=== PATIENT | female | born 1990 | race Caucasian/White ===

== ENCOUNTER 2018-09-11 13:42 | Outpatient (CLI) | payer OTHER ==
[~2018-09-11] VITALS: Ht 170.2 cm; Wt 102.7 kg
[~2018-09-11 13:42] MED LIST: ASPI1TAB15 PO; BUTALB-ACETAMIN-CAFF; DOCU10CA PO; FERR325T3 PO; IBUP1TAB7 PO; IBUP80TA PO; LABE20TAB PO; MAPA500T2 PO; ONDA8TAB7 PO; VITAPRTA PO
[2018-09-11 14:16] VITALS: BP 115/78
[2018-09-11] MEDS ORDERED: VITA25TA3 PO (14:25)
== END 2018-09-11 16:05 | disposition home or self-care (01) ==
LOC: M LDO 13:42
PROVIDERS: ATTEND Obstetrics & Gynecology
DX: O26.893 Other specified pregnancy related conditions, third trimester (principal); R10.13 Epigastric pain; O47.1 False labor at or after 37 completed weeks of gestation; Z3A.39 39 weeks gestation of pregnancy
CPT/HCPCS: 59025; G0378; G0463

== ENCOUNTER 2018-09-20 10:17 | Outpatient (CLI) | payer OTHER ==
[~2018-09-20] VITALS: Ht 170.2 cm; Wt 102.5 kg
[~2018-09-20 10:17] MED LIST changes: +VITA25TA3 PO
[2018-09-20 10:43] VITALS: BP 110/74
--- NOTE | 2018-09-20 11:55 | IPNPDOC ---
Text Note Date of Service The patient was seen on 09/20/18. NOTE 28 yo at 40+3 weeks gestation presents to L&D with intermittent contractions and pressure. She reports she started having pain around 0400, however she doesn't really remember what contractions felt like as she was induced for her first delivery and was very comfortable with an epidural. Today she denies any vaginal bleeding, or leakage of fluid. She endorses excellent movement. Chaperoned by L&D RN Vitals - VSS, afebrile, normotensive, non tachycardic General - AAOX3, sitting up in bed, NAD, pleasant and conversant Abdomen - Gravid uterus, no fundal tenderness Cervix - 50/-4, very posterior and high FHR tracing - Cat I tracing with moderate variability, +accels, no decels, no clear ctx on monitor. Couple breaks in tracing when patient was sitting up. Patient not in labor, unchanged cervix from check last week. Reassuring status. Scheduled for IOL on [id number] at 41 weeks. Return to care sooner for any urgent concerns. All questions answered. DO REJI Maya,Rafa, I+O VS, Rafa, I+O Vital Signs Date Time Temp Pulse Resp B/P (MAP) Pulse Ox O2 Delivery O2 Flow Rate FiO2 09/20/18 10:43 98.1 105 18 110/74 (86) 98 DAYDAY CHINCHILLA DO Sep 20, 2018 11:55
== END 2018-09-20 11:48 | disposition home or self-care (01) ==
LOC: M LDO 10:17
PROVIDERS: ATTEND Obstetrics & Gynecology
DX: O26.893 Other specified pregnancy related conditions, third trimester (principal); R10.30 Lower abdominal pain, unspecified; O47.1 False labor at or after 37 completed weeks of gestation; Z3A.40 40 weeks gestation of pregnancy
CPT/HCPCS: G0378; G0463

== ENCOUNTER 2018-09-23 04:43 | Inpatient (IN) | payer OTHER ==
[2018-09-23] VITALS (49 sets, daily range): BP systolic 103–180; BP diastolic 58–112
[~2018-09-23] VITALS: Ht 170.2 cm; Wt 103.6 kg
[2018-09-23] MEDS ORDERED: ACET-683 PO (05:32)
[2018-09-23] MEDS ORDERED: BENA25CA4 PO (05:33)
[2018-09-23] MEDS ORDERED: FIORCAP3 PO (05:33)
[2018-09-23] MEDS: LR 1,000 ML IV SCH ×3 (05:38→21:38)
[2018-09-23] MEDS ORDERED: LACTATED RINGER'S 1000 ML IV STA ×2 (05:38→07:28)
[2018-09-23] MEDS ORDERED: MORPHINE 10 MG/ML 1ML VIAL (J2270) IV ONE (06:00)
[2018-09-23] MEDS ORDERED: MORPHINE 10 MG/ML 1ML VIAL (J2270) As Ordered ONE (06:02)
[2018-09-23 06:34] LABS: HEMATOCRIT 34.5 % (36.0-47.0); HEMOGLOBIN 10.9 g/dl (12.0-15.5); MEAN CORPUSCULAR HEMOGLOBIN 25.1 pg (27.0-33.0); MEAN CORPUSCULAR HGB CONC 31.6 g/dl (32.0-36.5); MEAN CORPUSCULAR VOLUME 79.5 fl (80.0-96.0); PLATELET COUNT, AUTOMATED 298 10^3/uL (150-450); RED BLOOD COUNT 4.34 10^6/uL (4.00-5.40); WHITE BLOOD COUNT 11.6 10^3/uL (4.0-10.0)
[2018-09-23 06:36] LABS: APPEARANCE, URINE CLOUDY (CLEAR); BACTERIA, URINE AUTO NEGATIVE (NEGATIVE); BILIRUBIN, URINE AUTO NEGATIVE (NEGATIVE); BLOOD, URINE BLOOD NEGATIVE (NEGATIVE); COLOR, URINE YELLOW (YELLOW); GLUCOSE, URINE (UA) AUTO NEGATIVE (NEGATIVE); KETONE, URINE AUTO NEGATIVE (NEGATIVE); LEUKOCYTE ESTERASE, URINE AUTO 3+ (NEGATIVE); NITRITE, URINE AUTO NEGATIVE (NEGATIVE); PROTEIN, URINE AUTO 1+ mg/dL (NEGATIVE); RBC, URINE AUTO 9 /HPF (0-3); SPECIFIC GRAVITY URINE AUTO 1.013 (1.002-1.035); SQUAMOUS EPITHELIAL CELL UR AU 4 /HPF (0-6); UROBILINOGEN, URINE AUTO 0.2 mg/dL (0.0-2.0); WBC, URINE AUTO TNTC /HPF (0-3)
--- NOTE | 2018-09-23 07:48 | HPEPDOC ---
Obstetrical History & Physical General Date of Admission Sep 23, 2018 at 04:43 History of Present Illness 28 yo at 40+6 weeks gestation by 11+2 week US on [id number] presented to L&D with excruciating left sided lower back pain that woke her from sleep. She reports the pain has been present for the last few days but acutely worsened last night. She denies any vaginal bleeding or leakage of fluid. She endorses movement. is uncomplicated. She is scheduled for an IOL tomorrow for late term gestation. Chief Complaint: Other (Back pain) Information Provided By: Patient Age: 28 : 3 Term: 0 Pre-term: 1 Abortions: 0 Livin Care Care: Good Care Dating Final EDC: Sep 17, 2018 Final EDC for Daily Update: Sep 17, 2018 Final EDC by: 1st trimester (US) (ANTHONY set by 11+2 week US on [id number]) 1st Trimester Date: Feb 27, 2018 Antepartum Course Diagnos(e)s History of pre e requiring IOL at 36 weeks in first ---> no pre e this Migraines --> stable on fioricet Slight pyelectasis on US and possible club foot seen on PNC US Past Medical History Past Obstetrical History : Past Obstetrical History: Multigravida Type of Delivery: Spontaneous Vaginal Del. (36 week in 2014 after undergoing IOL for Pre E. Pelvis proven to 5lbs 6oz.) Complications: No [employer] History: No pertinent history Past Medical History Medical History Migraines depression Surgical History: Appendectomy (Open appendectomy), Other (Excision of swollen ingunial lymph node) Family History Significant Family History: No pertinent family hx Social History Marital Status: Family situation: Spouse/partner home Psychosocial History: Other (History of depression) * Smoker: non-smoker Alcohol: Denies Drugs: denies Imunizations Tdap status: current Influenza Status: current Allergies Coded Allergies: No Known Allergies (Unverified , 07/12/18) Medications Scheduled Multivit/Min/Pren/Fol Ac/Iron ( Vitamin Plus Low Iron) 1 Tab Tab, 1 TAB PO DAILY for NUTRITIONAL SUPPORT Riboflavin (Vitamin B2) (Vitamin B-2) 25 Mg Tablet, 1 TAB PO DAILY Scheduled PRN Acetaminophen (Acetaminophen) 500 Mg Tablet, 1,000 MG PO Q6H PRN for Pain Butalbital/Aspirin/Caffeine (Fiorinal 50-325-40 mg Capsule) 1 Each Capsule, 1 CAP PO DAILYPRN PRN for pain Diphenhydramine HCl (Benadryl) 25 Mg Capsule, 25 MG PO Q6-8HP PRN for Pain Physical Examination Physical Examination GENERAL: Alert and oriented times three. ABDOMEN: Gravid and non-tender to touch. BACK: Tenderness to palpation at lower back on left side. Tight musculature c/w spasm FETUS: Is vertex (VTX) by sterile vaginal examination (SVE) EXTREMITIES: No edema. Vital Signs/I&O Vital Signs Date Time Temp Pulse Resp B/P (MAP) Pulse Ox O2 Delivery O2 Flow Rate FiO2 09/23/18 06:26 116 18 103/64 09/23/18 06:12 99.0 99 Laboratory Data 24H LABS Laboratory Tests 2 09/23/18 04:49: Serology Scanned Report Hepatitis B Testing 09/23/18 05:56: Nucleated Red Blood Cells % (auto) 0.0, Urine Appearance CLOUDYH, Urine Color YELLOW, Urine pH 6.0, Urine Specific [place] 1.013, Urine Protein 1+H, Urine Glucose (UA) NEGATIVE, Urine Ketones NEGATIVE, Urine Urobilinogen 0.2, Urine Bilirubin NEGATIVE, Urine Leukocyte Esterase 3+H, Urine Blood NEGATIVE, Urine Nitrite NEGATIVE, Urine WBC (Auto) TNTCH, Urine RBC (Auto) 9H, Urine Hyaline Casts (Auto) 0, Urine Bacteria (Auto) NEGATIVE, Urine Squamous Epithelial Cells 4, Urine Sperm (Auto) CBC/BMP Laboratory Tests 09/23/18 05:56 Red Blood Count 4.34, Mean Corpuscular Volume 79.5 L, Mean Corpuscular Hemoglobin 25.1 L, Mean Corpuscular Hemoglobin Concent 31.6 L, Red Cell Distribution Width 16.2 H Urine Culture: No Growth Pertinent Laboratoy Data Blood Type: AB+ RBC Antibody Screen: Negative HIV: Negative Hepatitis B: Negative Hepatitis C: Unknown Rapid Plasma Reagin: Nonreactive Rubella: Immune Varicella: Immune Chlamydia/Gonorrhea: Negative Group B Streptococcus: Negative Quad Screen Test: Unknown Cystic Fibrosis: Unknown Glucose Tolerance Test: 112 Anatomy Ultrasound Placenta Location: Posterior Normal Anatomy: Yes (Yes other than mild renal pyelectasis and possible club foot) Placenta Previa: No Steroid Therapy Steroid Therapy: No Vaginal Examination Dilation: 3 cm Effacement: 70% Station: -2 Cervical Consistency: Medium Cervical Position: Middle Presentation: Cephalic presentation Position: Vertex (occiput) Assessment Heart Rate (FHR): 130 Variability: Moderate Accelerations: Positive Decelerations: None Tocometer Contractions: No Duration: other Assessment/Plan Assessment 28 yo at 40+6 weeks gestation presented with left sided back pain c/w with muscle spasm. Scheduled for IOL tomorrow, however cervix favorable so will start IOL today. Plan Admit to L&D for IOL. Apply IV fluids. Clear liquid diet. GBS negative. Cervix favorable, will start IOL with pitocin. Patient may have epidural when desired. Will treat muscle spasm pain as needed. Anticipate . All patient questions answered. DO RENÉE Maya CHRISTOPHER J. DO Sep 23, 2018 07:48
[2018-09-23] MEDS ORDERED: LR 1,000 ML IV SCH (08:00)
[2018-09-23] MEDS ORDERED: OXYTOCIN DRIP 30 UNITS in APPROPRIATE DILUENT 1 EA IV SCH ×2 (08:00→18:00)
[2018-09-23] MEDS ORDERED: ACETAMINOPHEN 325 MG TAB PO ONE (08:15)
[2018-09-23] MEDS: FIORICET TAB PO PRN ×2 (10:47→15:53)
[2018-09-23] MEDS ORDERED: FENTANYL 2MCG/ML ROPIVACAINE 0.2% IN 0.9% NACL 100ML IVBAG As Ordered ONE (14:15)
[2018-09-23] MEDS ORDERED: EPIDURAL COMMENT XX SCH (15:45)
[2018-09-23] MEDS ORDERED: REFRIGERATOR IV KEYS XX PRN (15:45)
[2018-09-23] MEDS ORDERED: ePHEDrine SULFATE 25 MG/5 ML(5MG/ML) SYRINGE IV PRN (15:45)
[2018-09-23] MEDS ORDERED: NALOXONE INJ 0.4 MG/1 ML VIAL (J2310) IV PRN (15:45)
[2018-09-23] MEDS ORDERED: LACTATED RINGER'S 1000 ML IV PRN (15:45)
[2018-09-23] MEDS ORDERED: diphenhydrAMINE INJ 50MG/ML VIAL (J1200) IV PRN (15:45)
[2018-09-23] MEDS ORDERED: FENTANYL/ROPIVACAINE/NACL BAG 100 ML EPIDURAL SCH (15:45)
[2018-09-23] MEDS ORDERED: ONDANSETRON 4MG/2ML VIAL (J2405) IV PRN (15:45)
[2018-09-23] MEDS ORDERED: EPIDURAL/PCA KEYS XX PRN (15:45)
--- NOTE | 2018-09-23 15:58 | NUR ---
assessment post epidural. Small leak clear fluid noted category 1 strip exam cervix posterior thick -3 station 2-3 cm soft arom of bag clear fluid Pitocin 8 munits noted migraine better on Fioricet. Safe to proceed. Patient has multiple vulvar varicose veins
[2018-09-23] MEDS ORDERED: DOCUSATE SODIUM 100 MG CAP PO PRN (17:45)
[2018-09-23] MEDS ORDERED: DIBUCAINE 1% OINTMENT 30GM TOP PRN (17:45)
[2018-09-23] MEDS ORDERED: ANUSOL HC CREAM 30GM TOP PRN (17:45)
[2018-09-23] MEDS ORDERED: IBUPROFEN 600 MG TAB PO PRN (17:45)
[2018-09-23] MEDS ORDERED: MEASLES,MUMPS,RUBELLA VACCINE INJ (MMR-II) (90707) SC SCH (17:45)
[2018-09-23] MEDS ORDERED: RHOGAM 300 MCG (1500 IU) INJ (J2790) IM SCH (17:45)
[2018-09-23] MEDS ORDERED: ACETAMINOPHEN TAB 650MG DOSE (2X325MG) PO PRN (17:45)
[2018-09-23] MEDS ORDERED: MOM 30ML SUSPENSION UDC PO PRN (17:45)
[2018-09-23] MEDS ORDERED: METHYLERGONOVINE MALEATE 0.2 MG TAB PO PRN (17:45)
[2018-09-23 17:47] LABS: CORD GAS ABE V -2.2; CORD GAS HCO3 V 22.1 MEQ/L; CORD GAS PCO2 V 37.1 mmHg; CORD GAS PH V 7.393 UNITS; CORD GAS PO2 V 31.4 mmHg; CORD GAS TCO2 V 23.2 MEQ/L
[2018-09-23 17:48] LABS: CORD GAS ABE A -0.7; CORD GAS HCO3 A 25.8 MEQ/L; CORD GAS O2 SAT A 35.4 %; CORD GAS PH A 7.339 UNITS; CORD GAS PO2 A 18.1 mmHg; CORD GAS SBC A 22.3 MEQ/L; CORD GAS TCO2 A 27.3 MEQ/L
[2018-09-23] MEDS ORDERED: OXYTOCIN INJ 10 UNITS/ML VIAL (J2590) IV ONE (18:00)
[2018-09-23] MEDS ORDERED: OXYTOCIN 30 UNITS IN 0.9% NaCl 500ML IV BAG (J2590) As Ordered ONE (18:19)
[2018-09-23] MEDS: OXYTOCIN DRIP 30 UNITS in APPROPRIATE DILUENT 1 EA IV SCH ×2 (18:24→21:00)
--- NOTE | 2018-09-23 18:49 | DN ---
DATE: 09/25/2018 This lady is a 28-year-old 3, now para 2, was admitted for induction of labor at 40 and 6 weeks of gestation, has a history of migraines and has some flank pain. She had been given morphine for her migraines. Subsequently we started Pitocin. She had an epidural in place and an artificial rupture of membranes (ARM) after she had a high leak and precipitously went and delivered a live female infant 3540 grams, 7 pounds 14 ounces, scores of 9 and 10 at one and five minutes respectively. The placenta delivered spontaneously thereafter. Three-vessel and cord membranes and tissues intact. Arterial and venous pH were performed. The results are pending. The examination of the vagina, anterior, posterior and lateral ceballos were intact. Sphincter was tight. Uterus contracted well under Pitocin. The patient baby tolerated the procedure well.
[2018-09-23] MEDS ORDERED: miSOPROStol 200 MCG TAB (S0191) As Ordered ONE ×2 (19:25→19:35)
[2018-09-23] MEDS ORDERED: miSOPROStol 100 MCG TAB (S0191) As Ordered ONE (19:34)
[2018-09-23] MEDS ORDERED: METHYLERGONOVINE MALEATE 0.2 MG/ML VIAL (J2210) IM STA (19:42)
[2018-09-23] MEDS ORDERED: miSOPROStol 200 MCG TAB (S0191) PR ONE (19:45)
[2018-09-23] MEDS ORDERED: FIORICET TAB PO ONE (19:45)
[2018-09-23] MEDS ORDERED: PIPERACILLIN/TAZOBACTAM SOD 3.375 GM in D5W MINI-BAG PLUS 50 ML IV ONE (20:00)
[2018-09-23] MEDS: IBUPROFEN 800 MG TAB PO PRN (20:08)
[2018-09-23 21:57] LABS: HEMATOCRIT 29.4 % (36.0-47.0); HEMOGLOBIN 9.5 g/dl (12.0-15.5); MEAN CORPUSCULAR HEMOGLOBIN 25.6 pg (27.0-33.0); MEAN CORPUSCULAR HGB CONC 32.3 g/dl (32.0-36.5); MEAN CORPUSCULAR VOLUME 79.2 fl (80.0-96.0); PLATELET COUNT, AUTOMATED 222 10^3/uL (150-450); RED BLOOD COUNT 3.71 10^6/uL (4.00-5.40); WHITE BLOOD COUNT 12.2 10^3/uL (4.0-10.0)
[2018-09-24] MEDS: METHYLERGONOVINE MALEATE 0.2 MG TAB PO SCH ×4 (01:56→20:46)
[2018-09-24] MEDS: ACETAMINOPHEN 500 MG TAB PO PRN ×3 (02:48→21:17)
[2018-09-24 05:27] VITALS: BP 127/72
[2018-09-24] MEDS: IBUPROFEN 800 MG TAB PO PRN ×3 (06:53→21:18)
[2018-09-24 07:19] LABS: HEMATOCRIT 28.9 % (36.0-47.0); HEMOGLOBIN 9.2 g/dl (12.0-15.5); MEAN CORPUSCULAR HEMOGLOBIN 25.5 pg (27.0-33.0); MEAN CORPUSCULAR HGB CONC 31.8 g/dl (32.0-36.5); MEAN CORPUSCULAR VOLUME 80.1 fl (80.0-96.0); PLATELET COUNT, AUTOMATED 224 10^3/uL (150-450); RED BLOOD COUNT 3.61 10^6/uL (4.00-5.40)
[2018-09-24] MEDS ORDERED: miSOPROStol 200 MCG TAB (S0191) As Ordered ONE (08:17)
[2018-09-24] MEDS ORDERED: OXYTOCIN INJ 10 UNITS/ML VIAL (J2590) As Ordered ONE (08:17)
[2018-09-24] MEDS ORDERED: PRENATAL VITAMINS CHEWABLE TABLET PO SCH (09:00)
--- NOTE | 2018-09-24 16:35 | IPN ---
DATE: 09/23/2018 I was called to the room for this patient by the shift change nurse because of trickling and bleeding and clots. On evaluation, this patient found that her gown was soaked with blood. A manual exploration of the uterus revealed a moderate amount of clots and there were some that were higher up in the uterus which were more difficult to get to. Therefore, the patient was placed in lithotomy position, sterile speculum was inserted and ring forceps were used to remove the rest of the clots. We did contract down the uterus with removal of all the clots. Approximate dosage bleed was 1250 mL. However, the patient was clotting well. After satisfactory evacuation of the uterus and the uterus rosemarie well down on Pitocin, we continued with another bag of Pitocin at 125 mL an hour, Cytotec 1000 mg per rectum, intravenous (IV) Methergine 0.2 and the patient was then started on a Methergine series. [place] catheter was left in and her vital signs were 134/76 with respirations of 18 and pulse of 90. Our plan is to redo her complete blood count (CBC) in two hours, monitor her urine output, monitor her uterine flow and, if all is stable, send her to the floor after that time.
--- NOTE | 2018-09-24 16:39 | IPN ---
DATE: 09/23/2018 This lady had a delayed bleed of 1250 mL of blood after evacuation was well contracted. She had received Cytotec 1000 mg per rectum and Methergine 0.2 intramuscular (IM), put on a Methergine series, was given prophylactic antibiotics dose times one dose. Her [place] catheter remained in. On evaluation presently, her blood pressure is 129/70, respirations are 18, pulse is 93, temperature was elevated at 100.2, possibly related to all the manipulation. She appears well, is a bit pale. Her urinary output was 450 mL hourly times two hours, clear urine. She has minimal flow to the introital area and the uterus remains firm. Our plan of management is to reevaluate her complete blood count (CBC) in the morning and send her up to the floor with the [place] catheter removed. The CBC at 2150 hours was WBC 9.5, hematocrit 29.4 and platelets were 222. Her admitting hemoglobin 10.9, hematocrit was 34.5 and platelets were 298. IN SUMMARY: We had a delayed hemorrhage, now controlled with medication.
[2018-09-24 18:08] VITALS: BP 113/67
[2018-09-25] MEDS: IBUPROFEN 800 MG TAB PO PRN (05:15)
[2018-09-25 05:55] VITALS: BP 110/72
--- NOTE | 2018-09-25 07:02 | IPN ---
DATE: 09/24/2018 day 1. Patient is a 28-year-old 3, para 2, who was induced at 40 and 6, had a spontaneous vaginal delivery of a female 7 pounds, 14 ounces, scores of nine and ten at 1 and 5 minutes respectively. Arterial pH was 7.3, base excess -0.7, venous pH 7.39, base excess -2.2. She had a delayed hemorrhage of 1250 mL. She was given Cytotec per rectum, IM Methergine and Pitocin running and she was put on a Methergine series. She had one dose of Zosyn as a prophylaxis because of manipulation. This morning she appears to be well, alert, breast-feeding. Her 0600 hours blood work is pending. She has had no bleeding overnight. She has voided 800 mL. She has been up and is asymptomatic. Her blood pressure presently is 127/72, respirations 14, pulse 91 and temperature is 97.8. We discussed phlebitis, cystitis, mastitis, endometritis and cellulitis, diet, exercise pain management, perineal breast and wound care. The patient is uncertain as to what method of control she is going to want, which we can discuss at her six week checkup. Our plan of care is discharge her within 24 hours if baby is discharged, she will not be 24 hours until 1700 hours tonight. In summary, we have a term gestation delivered a live female doing well.
--- NOTE | 2018-09-25 07:37 | DS.PDOC ---
Discharge Summary General Date of Admission Sep 23, 2018 at 04:43 Date of Discharge [id number] Discharge Summary ADMITTING DIAGNOSES: IOL, 40+6 DISCHARGE DIAGNOSES: Same, HOSPITAL COURSE: Admitted and delivery uncomplicated, . course complicated by a hemorrhage, handled appropriately and CBC thereafter OK.. DISCHARGE MEDICATIONS: Motrin, Lanolin DISCHARGE INSTRUCTIONS: Nothing in the vagina for 6 weeks. F/U in OBGYN clinic in 6-8 weeks. Sessions Vital Signs/I&Os Vital Signs Date Time Temp Pulse Resp B/P (MAP) Pulse Ox O2 Delivery O2 Flow Rate FiO2 09/25/18 05:55 98.1 75 18 110/72 (85) 09/24/18 05:27 99 Discharge Medications Scheduled Multivit/Min/Pren/Fol Ac/Iron ( Vitamin Plus Low Iron) 1 Tab Tab, 1 TAB PO DAILY for NUTRITIONAL SUPPORT, (Reported) Riboflavin (Vitamin B2) (Vitamin B-2) 25 Mg Tablet, 1 TAB PO DAILY, (Reported) Scheduled PRN Acetaminophen (Acetaminophen) 500 Mg Tablet, 1,000 MG PO Q6H PRN for Pain, (Reported) Butalbital/Aspirin/Caffeine (Fiorinal 50-325-40 mg Capsule) 1 Each Capsule, 1 CAP PO DAILYPRN PRN for pain, (Reported) Diphenhydramine HCl (Benadryl) 25 Mg Capsule, 25 MG PO Q6-8HP PRN for Pain, (Reported) Allergies Coded Allergies: No Known Allergies (Unverified , 07/12/18) SESSIONSLOTSU MD Sep 25, 2018 07:37
--- NOTE | 2018-09-25 07:38 | IPNPDOC ---
Text Note Date of Service The patient was seen on 09/25/18. NOTE PPD2 States feeling well, pain controlled with prescribed meds. Baby bonding and feeding well. No heavy VB. Lochia slowing. Ambulatory. Tolerating PO without issues. Voiding spont. No CP/LP/SOB. VSSAF NAD A&O LE no C/C/E Ut at U-2, firm a/p: Doing well. Cont routine care. D/C today. Sessions VS,Rafa, I+O VSRafa, I+O Vital Signs Date Time Temp Pulse Resp B/P (MAP) Pulse Ox O2 Delivery O2 Flow Rate FiO2 09/25/18 05:55 98.1 75 18 110/72 (85) 09/24/18 05:27 99 SESSIONS,LOTUS Ledesma MD Sep 25, 2018 07:38
[2018-09-25] MEDS ORDERED: ACET1TAB55 PO (07:43)
[2018-09-25] MEDS ORDERED: IBUP80TA PO (07:43)
== END 2018-09-25 10:10 | disposition home or self-care (01) | DRG 806 ==
LOC: M LDI 04:43 → M OBS 22:36
PROVIDERS: ADMIT Obstetrics & Gynecology; ATTEND Obstetrics & Gynecology
PROC: 10907ZC Drainage of Amniotic Fluid, Therapeutic from Products of Conception, Via Natural or Artificial Opening (ICD-10-PCS; 2018-09-23)
PROC: 3E033VJ Introduction of Other Hormone into Peripheral Vein, Percutaneous Approach (ICD-10-PCS; 2018-09-23)
PROC: 10E0XZZ Delivery of Products of Conception, External Approach (ICD-10-PCS; principal; 2018-09-25)
DX: O48.0 Post-term pregnancy (principal); Z37.0 Single live birth; O72.1 Other immediate postpartum hemorrhage; O99.354 Diseases of the nervous system complicating childbirth; M62.830 Muscle spasm of back; Z3A.40 40 weeks gestation of pregnancy; O26.893 Other specified pregnancy related conditions, third trimester; O62.3 Precipitate labor; O22.13 Genital varices in pregnancy, third trimester; G40.909 Epilepsy, unspecified, not intractable, without status epilepticus